=== PATIENT | female | born 1960 | race Caucasian/White ===

== ENCOUNTER 2017-10-31 18:20 | Emergency (ER) | payer MEDICARE, MEDICAID ==
[~2017-10-31] VITALS: Ht 157.5 cm; Wt 63.6 kg
[2017-10-31 18:38] VITALS: Ht 157.5 cm; Wt 63.6 kg
[2017-10-31] MEDS ORDERED: PROTONIX40 MG PO (18:43)
[2017-10-31] MEDS ORDERED: ATIVAN1 MG PO (18:44)
[2017-10-31] MEDS ORDERED: ALBUTEROL0.63 MG/3 INH (18:44)
[2017-10-31] MEDS ORDERED: VALIUM 2 MG TAB2 MG PO (19:50)
[2017-10-31] MEDS ORDERED: EC-NAPROSYN500 MG PO (19:51)
[2017-10-31 20:04] VITALS: BP 120/76
== END 2017-10-31 20:05 | disposition home or self-care (01) ==
LOC: D.ER 18:20
DX: S29.012A Strain of muscle and tendon of back wall of thorax, initial encounter (principal); X50.0XXA Overexertion from strenuous movement or load, initial encounter; Y93.89 Activity, other specified; Y92.89 Other specified places as the place of occurrence of the external cause; M62.838 Other muscle spasm; M54.2 Cervicalgia; M79.602 Pain in left arm

== ENCOUNTER 2017-12-22 16:30 | Emergency (ER) | payer MEDICARE, MEDICAID ==
[~2017-12-22] VITALS: Ht 157.5 cm; Wt 67.1 kg
[~2017-12-22 16:30] MED LIST: ALBUTEROL0.63 MG/3 INH; ATIVAN1 MG PO; EC-NAPROSYN500 MG PO; PROTONIX40 MG PO; VALIUM 2 MG TAB2 MG PO
[2017-12-22 16:55] VITALS: Ht 157.5 cm; Wt 67.1 kg
[2017-12-22] MEDS ORDERED: XANAX XR 1 MG TA1 MG PO (17:00)
[2017-12-22] MEDS ORDERED: ULTRAM50 MG PO (18:58)
[2017-12-22] MEDS ORDERED: VOLTAREN75 MG PO (18:58)
[2017-12-22 20:25] VITALS: BP 118/72
== END 2017-12-22 20:25 | disposition home or self-care (01) ==
LOC: D.ER 16:30
DX: S82.892A Other fracture of left lower leg, initial encounter for closed fracture (principal); S62.91XA Unspecified fracture of right hand, initial encounter for closed fracture; W19.XXXA Unspecified fall, initial encounter; Y93.89 Activity, other specified; Y92.019 Unspecified place in single-family (private) house as the place of occurrence of the external cause; M25.532 Pain in left wrist; J44.9 Chronic obstructive pulmonary disease, unspecified

== ENCOUNTER 2020-01-07 12:32 | Emergency (ER) | payer MEDICARE, MEDICAID ==
[~2020-01-07] VITALS: Ht 157.5 cm; Wt 72.7 kg
[~2020-01-07 12:32] MED LIST changes: +ULTRAM50 MG PO; +VOLTAREN75 MG PO; +XANAX XR 1 MG TA1 MG PO
[2020-01-07 12:40] VITALS: Ht 157.5 cm; Wt 72.7 kg
[2020-01-07] MEDS ORDERED: METHOCARBAMOL500 MG PO (12:53)
[2020-01-07] MEDS ORDERED: PREDNISONE20 MG PO (12:53)
[2020-01-07 13:41] VITALS: BP 132/64
== END 2020-01-07 13:41 | disposition home or self-care (01) ==
LOC: D.ER 12:32
DX: M51.16 Intervertebral disc disorders with radiculopathy, lumbar region (principal); M54.5 Low back pain; J44.9 Chronic obstructive pulmonary disease, unspecified; Z72.0 Tobacco use